=== PATIENT | female | born 1985 ===

== ENCOUNTER 2018-03-03 09:55 | Emergency (ER) | payer OTHER ==
[2018-03-03 10:15] VITALS: RESP 18
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
[2018-03-03 11:27] LABS: HCG,QUALITATIVE URINE NEGATIVE (NEGATIVE)
[2018-03-03 11:33] LABS: SQUAMOUS EPITHIAL 2 /hpf (0-5); URINE BACTERIA RARE (<OCC); URINE BILIRUBIN NEGATIVE (NEGATIVE); URINE BLOOD NEGATIVE (NEGATIVE); URINE CLARITY Clear (Clear); URINE COLOR Straw (YELLOW); URINE GLUCOSE (UA) NORMAL (Normal); URINE LEUKOCYTE ESTERASE TRACE Leu/uL (Negative); URINE PROTEIN NEGATIVE (NEGATIVE); URINE UROBILINOGEN NORMAL mg/dL (0.2-1.0)
[2018-03-03 12:56] VITALS: BP 103/66; PULSE 86; TEMP 98.5
[2018-03-03 14:28] VITALS: O2SAT 99
== END 2018-03-03 15:39 | disposition home or self-care (01) ==
LOC: C.ER 09:55
DX: T76.21XA Adult sexual abuse, suspected, initial encounter (principal)